=== PATIENT | female | born 1975 | race Caucasian/White ===

== ENCOUNTER → 2024-01-04 06:38 | Day surgery (SDC) | payer BC, SELFPAY | LOC: GI 06:38 | PROVIDERS: ATTENDING PHYSICIAN Internal Medicine Gastroenterology | DX: Z12.11 Encounter for screening for malignant neoplasm of colon (principal); K57.30 Diverticulosis of large intestine without perforation or abscess without bleeding; K62.1 Rectal polyp; K64.8 Other hemorrhoids | CPT/HCPCS: 45380; 88305 ==

== ENCOUNTER → 2024-04-10 14:57 | Outpatient (REF) | payer BC, SELFPAY | LOC: RAD 14:57 | PROVIDERS: ATTENDING PHYSICIAN Student in an Organized Health Care Education/Training Program | DX: R05.9 Cough, unspecified (principal); M54.6 Pain in thoracic spine | CPT/HCPCS: 71046 ==

== ENCOUNTER 2024-04-21 06:31 | Day surgery (SDC) | payer BC, SELFPAY ==
[2024-04-21] VITALS (7 sets, daily range): BP systolic 109–130; BP diastolic 79–84; BMI 29.4
[2024-04-21] MEDS: Pyridium 200 MG PO (11:46)
[2024-04-21] MEDS: NORMOSOL-R 1000 IV (11:46)
[2024-04-21] MEDS: MOTRIN 600 MG PO (15:18)
== END 2024-04-21 15:44 | disposition home or self-care (01) ==
LOC: SDS 06:31
PROVIDERS: ATTENDING PHYSICIAN Obstetrics & Gynecology
DX: N39.3 Stress incontinence (female) (male) (principal); N36.41 Hypermobility of urethra; N32.81 Overactive bladder
CPT/HCPCS: 57288; C1771

== ENCOUNTER → 2024-05-05 13:46 | Outpatient (REF) | payer BC, SELFPAY | LOC: HWRAD 13:46 | PROVIDERS: ATTENDING PHYSICIAN Internal Medicine Critical Care Medicine; FAMILY PHYSICIAN Student in an Organized Health Care Education/Training Program | DX: R05.9 Cough, unspecified (principal) | CPT/HCPCS: 71250 ==

== ENCOUNTER → 2025-08-07 12:00 | Outpatient (REF) | payer BC, SELFPAY | LOC: DHSLP 12:00 | PROVIDERS: ATTENDING PHYSICIAN Internal Medicine Critical Care Medicine; FAMILY PHYSICIAN Family Medicine; REFERRING PHYSICIAN Internal Medicine Critical Care Medicine | DX: G47.33 Obstructive sleep apnea (adult) (pediatric) (principal) | CPT/HCPCS: 95800 ==

== ENCOUNTER → 2025-08-12 08:20 | Outpatient (REF) | payer BC, SELFPAY | LOC: HWRAD 08:20 | PROVIDERS: ATTENDING PHYSICIAN Obstetrics & Gynecology; FAMILY PHYSICIAN Family Medicine | DX: N93.9 Abnormal uterine and vaginal bleeding, unspecified (principal) | CPT/HCPCS: 76830; 76856 ==

== ENCOUNTER → 2025-10-27 15:14 | Outpatient (REF) | payer BC, SELFPAY | LOC: HWRAD 15:14 | PROVIDERS: ATTENDING PHYSICIAN Nurse Practitioner Family; FAMILY PHYSICIAN Family Medicine | DX: E04.9 Nontoxic goiter, unspecified (principal) | CPT/HCPCS: 76536 ==